=== PATIENT | male | born 1960 | race Caucasian/White ===

== ENCOUNTER 2017-11-16 09:58 | Outpatient (CLI) | payer OTHER ==
[2015-07-22 09:56] VITALS: O2SAT 94
== END 2017-11-16 09:59 | disposition home or self-care (01) ==
LOC: CONVCARE 09:58
PROVIDERS: ATTEND Orthopaedic Surgery
DX: M25.552 Pain in left hip (principal)
CPT/HCPCS: 70030; 73501

== ENCOUNTER → 2017-12-28 | Outpatient (CLI) | payer OTHER ==
[2015-07-22 09:56] VITALS: O2SAT 94
== END | disposition home or self-care (01) ==
LOC: CONVCARE 11:15
PROVIDERS: ATTEND Orthopaedic Surgery
DX: M25.552 Pain in left hip (principal)